=== PATIENT | female | born 1935 | race Caucasian/White ===

== ENCOUNTER → 2018-01-08 | Outpatient (CLI) | payer OTHER ==
--- NOTE | 2018-01-12 13:50 | CPEEG ---
A 24-HOUR AMBULATORY EEG DATES OF STUDY: From January 08, 2018, to January 09, 2018. INTERPRETATION: This 24-hour ambulatory EEG recording shows a mild degree of focal slowing and asymmetry over the left centrotemporal head regions. These findings could be consistent with a previous neurosurgical procedure/craniotomy in these regions. There were no definite potentially epileptogenic abnormalities present during the awake or sleep recordings. The patient- provided diary with the study did not report any symptoms or episodes. REPORT: This 24-hour ambulatory EEG recording contains 9-10 Hz alpha to the posterior head regions. The primary finding of this study was the presence of a mild degree of focal theta slowing and asymmetry with increased amplitudes ( breech rhythm) over the left centrotemporal head region. There was no definite abnormal activation at rest, during sleep, or during times of arousal. The patient-provided diary did not report any symptoms or episodes during this 24- hour study. Only patient registration representative samples of wakefulness, sleep, and patient-provided symptoms (if any) were reviewed with the study. I attempted to call the referring provider, Dr. Clemente Campbell, neurology, to discuss the findings of this study. /[id number]/MODL MTDD
== END ==
LOC: FCPNEURO 15:04
PROVIDERS: ATTEND Psychiatry & Neurology Neurology
DX: G40.209 Localization-related (focal) (partial) symptomatic epilepsy and epileptic syndromes with complex partial seizures, not intractable, without status epilepticus (principal)

== ENCOUNTER 2018-06-15 20:21 | Emergency (ER) | payer OTHER ==
--- NOTE | 2018-06-15 20:30 | EDPHY ---
H & P Time Seen by Provider: 06/15/18 20:26 Constitutional: Initial Vital Signs Temperature (C) 36.7 C 06/15/18 20:34 Heart Rate 72 06/15/18 20:34 Respiratory Rate 18 06/15/18 20:34 Blood Pressure 206/98 H 06/15/18 20:34 O2 Sat (%) 98 06/15/18 20:34 O2 Delivery Mode Room Air Allergies/Adverse Reactions: erythritol Allergy (Verified 06/15/18 21:03) erythromycin base Allergy (Verified 06/15/18 21:03) Penicillins Allergy (Verified 06/15/18 20:36) Home Medications: Medication Instructions Recorded [place] 06/15/18 Medical Decision Making ED Course/Re-evaluation: CHIEF COMPLAINT: Depression and suicidality evaluated by Mental Health and sent here for medical clearance before admission HISTORY OF PRESENT ILLNESS: 83-year-old female with a longstanding history of depression. She is becoming more more suicidal recently. She sought care by the mental health team who believe that she would benefit from admission. They sent her over here on a 72 hr hold to have medical clearance performed before looking for placement at an inpatient psychiatric facility. REVIEW OF SYSTEMS: A comprehensive 10 system review of systems is otherwise negative aside from elements mentioned in the history of present illness and medical decision making. PHYSICAL EXAM: General Appearance: Alert, well hydrated, appropriate, and non-toxic appearing. Head: Atraumatic without scalp tenderness or obvious injury Eyes: Pupils equal, round, reactive to light and accommodation, EOMI, no trauma , no injection. Ears: Clear bilaterally, no perforation, normal landmarks Nose: Atraumatic, no rhinorrhea, clear. Throat: There is no erythema or exudates, no lesions, normal tonsils, mucus membranes moist. Neck: Supple, 2+ carotid upstroke, nontender, no lymphadenopathy. Respiratory: No retractions, no distress, no wheezes, and no accessory muscle use. Lungs are clear to auscultation bilaterally. Cardiovascular: Regular rate and rhythm, no murmurs, rubs, or gallops. Bilateral carotid, radial, dorsalis pedis, and posterior tibial pulses intact. Good capillary refill all extremities. Gastrointestinal: Abdomen is soft, nontender, non-distended, no masses, no rebound, no guarding, no peritoneal signs. Musculoskeletal: Normal active ROM of all extremities, atraumatic. Neurological: Alert, appropriate, and interactive. The patient has normal DTRs and non-focal cranial nerves, motor, sensory, and cerebellar exam. Skin: No rashes, good turgor, no nodules on palpation. Past medical history: Depression suicidality Past surgical history: Noncontributory Family history: Noncontributory Social history: , retired, does not abuse tobacco drugs or alcohol DIFFERENTIAL DIAGNOSIS: The differential diagnosis for the patient's depression included but was not limited to functional and major depression, situational depression, medication side effect, drugs, and alcohol abuse. MEDICAL DECISION MAKING: Patient is in no acute distress and is hemodynamically stable. We are awaiting psychiatric team's evaluation. Patient has known history of psychiatric disorders and is here for evaluation. She is suicidal. She does not have a specific plan. She will be evaluated by the psychiatric team and admitted. She is medically cleared. 2100: Patient care turned over to Dr. Pozo at shift change pending mental health eval. (David Schmidt) Other Provider: 11:00 p.m. patient has been medically cleared. We are awaiting psychiatric placement. Care transferred to Dr. Hany Anthony. (Sam Pozo) 0234: Patient has been accepted at [facility] psychiatric facility. She has been accepted by [facility]. Appropriate transfer is been set up. (Hany Anthony) - Data Points Laboratory Results: Laboratory Results 06/15/18 20:44 06/15/18 20:44 06/15/18 06/15/18 06/15/18 20:44 20:44 20:30 WBC 7.03 10^3/uL 10^3/uL (3.80-9.50) RBC 4.22 10^6/uL 10^6/uL (4.18-5.33) Hgb 12.9 g/dL g/dL (12.6-16.3) Hct 40.3 % % (38.0-47.0) MCV 95.5 fL fL (81.5-99.8) MCH 30.6 pg pg (27.9-34.1) MCHC 32.0 g/dL L g/dL (32.4-36.7) RDW 12.9 % % (11.5-15.2) Plt Count 194 10^3/uL 10^3/uL (150-400) MPV 8.9 fL fL (8.7-11.7) Neut % (Auto) 67.2 % % (39.3-74.2) Lymph % (Auto) 23.3 % % (15.0-45.0) [place] % (Auto) 5.8 % % (4.5-13.0) Eos % (Auto) 2.8 % % (0.6-7.6) Baso % (Auto) 0.6 % % (0.3-1.7) Nucleat RBC Rel Count 0.0 % % (0.0-0.2) Absolute Neuts (auto) 4.72 10^3/uL 10^3/uL (1.70-6.50) Absolute Lymphs (auto) 1.64 10^3/uL 10^3/uL (1.00-3.00) Absolute Monos (auto) 0.41 10^3/uL 10^3/uL (0.30-0.80) Absolute Eos (auto) 0.20 10^3/uL 10^3/uL (0.03-0.40) Absolute Basos (auto) 0.04 10^3/uL 10^3/uL (0.02-0.10) Absolute Nucleated RBC 0.00 10^3/uL 10^3/uL (0-0.01) Immature Gran % 0.3 % % (0.0-1.1) Immature Gran # 0.02 10^3/uL 10^3/uL (0.00-0.10) Sodium 137 mEq/L mEq/L (135-145) Potassium 3.9 mEq/L mEq/L (3.5-5.2) Chloride 104 mEq/L mEq/L (97-110) Carbon Dioxide 24 mEq/l mEq/l (22-31) Anion Gap 9 mEq/L mEq/L (6-14) BUN 21 mg/dL mg/dL (7-23) Creatinine 0.9 mg/dL mg/dL (0.6-1.0) Estimated GFR 60 Glucose 89 mg/dL mg/dL (70-100) Calcium 9.3 mg/dL mg/dL (8.5-10.4) Urine Color PALE YELLOW Urine Appearance CLEAR Urine pH 6.0 (5.0-7.5) Ur Specific [place] 1.012 (1.002-1.030) Urine Protein NEGATIVE (NEGATIVE) Urine Ketones NEGATIVE (NEGATIVE) Urine Blood NEGATIVE (NEGATIVE) Urine Nitrate NEGATIVE (NEGATIVE) Urine Bilirubin NEGATIVE (NEGATIVE) Urine Urobilinogen NEGATIVE EU EU (0.2-1.0) Ur Leukocyte Esterase NEGATIVE (NEGATIVE) Urine Glucose NEGATIVE (NEGATIVE) Salicylates < 1.0 mg/dL L mg/dL (2.0-20.0) Urine Opiates Screen Acetaminophen < 10 mcg/mL L mcg/mL (10-30) Urine Barbiturates Ur Phencyclidine Scrn Ur Amphetamine Screen U Benzodiazepines Scrn Urine Cocaine Screen U Marijuana (THC) Screen Ethyl Alcohol < 10 mg/dL mg/dL (0-10) 06/15/18 20:30 WBC RBC Hgb Hct MCV MCH MCHC RDW Plt Count MPV Neut % (Auto) Lymph % (Auto) [place] % (Auto) Eos % (Auto) Baso % (Auto) Nucleat RBC Rel Count Absolute Neuts (auto) Absolute Lymphs (auto) Absolute Monos (auto) Absolute Eos (auto) Absolute Basos (auto) Absolute Nucleated RBC Immature Gran % Immature Gran # Sodium Potassium Chloride Carbon Dioxide Anion Gap BUN Creatinine Estimated GFR Glucose Calcium Urine Color Urine Appearance Urine pH Ur Specific [place] Urine Protein Urine Ketones Urine Blood Urine Nitrate Urine Bilirubin Urine Urobilinogen Ur Leukocyte Esterase Urine Glucose Salicylates Urine Opiates Screen NEGATIVE (NEGATIVE) Acetaminophen Urine Barbiturates NEGATIVE (NEGATIVE) Ur Phencyclidine Scrn NEGATIVE (NEGATIVE) Ur Amphetamine Screen NEGATIVE (NEGATIVE) U Benzodiazepines Scrn NEGATIVE (NEGATIVE) Urine Cocaine Screen NEGATIVE (NEGATIVE) U Marijuana (THC) Screen NEGATIVE (NEGATIVE) Ethyl Alcohol Departure - Departure Disposition: Other Psych, Not [place] Clinical Impression: Suicidal ideation, Severe major depression Condition: Fair Referrals: Patient,NotPresent [Unknown] - As per Instructions
[2018-06-15 20:56] LABS: PLATELET COUNT 194 10^3/uL (150-400)
[2018-06-16 02:27] VITALS: BP 186/59
--- NOTE | 2018-06-16 14:04 | CPEKG ---
Test Reason : OPEN Blood Pressure : / mmHG Vent. Rate : 049 BPM Atrial Rate : 049 BPM P-R Int : 152 ms QRS Dur : 095 ms QT Int : 431 ms P-R-T Axes : 072 -10 070 degrees QTc Int : 390 ms Sinus bradycardia Confirmed by Feng Constantino ([id number]) on 06/16/2018 2:03:59 PM Referred By: FENG CONSTANTINO Confirmed By:Feng Constantino
== END 2018-06-16 03:25 ==
LOC: EDUNIT# → EDBD
DX: R45.851 Suicidal ideations (principal); F32.9 Major depressive disorder, single episode, unspecified
CPT/HCPCS: 80305; G0480